=== PATIENT | female | born 1970 | race Caucasian/White ===

== ENCOUNTER 2022-09-11 19:07 | Emergency (ER) | payer OTHER ==
[~2022-09-11] VITALS: Ht 165.1 cm; Wt 81.6 kg
[2022-09-11] MEDS: MECLIZINE HCL 25 MG TABLET PO ONE (19:45)
[2022-09-11 19:57] LABS: HEMATOCRIT 36.7 % (31.2-41.9); MEAN CORPUSCULAR HEMOGLOBIN 26.7 uug (24.7-32.8); MEAN CORPUSCULAR VOLUME 79.5 fL (75.5-95.3); PLATELET COUNT (AUTO) 373 K/uL (179-408)
[2022-09-11 20:11] LABS: ALANINE AMINOTRANSFERASE 23 U/L (14-59); ALKALINE PHOSPHATASE 80 U/L (50-136); ASPARTATE AMINOTRANSFERASE 13 U/L (15-37); BILIRUBIN,DIRECT 0.1 mg/dL (0.0-0.2); BILIRUBIN,TOTAL 0.2 mg/dL (0.2-1.0); CARBON DIOXIDE 27 mmol/L (21-32); CHLORIDE 100 mmol/L (98-107); CREATININE 0.7 mg/dL (0.6-1.3); GLUCOSE 139 mg/dL (74-106); LIPASE 157 U/L (73-393); POTASSIUM 3.6 mmol/L (3.5-5.1); UREA NITROGEN, BLOOD 10 mg/dL (7-18)
[2022-09-11] MEDS: diphenhydrAMINE 50 MG/1 ML VIAL IV ONE (20:45)
[2022-09-11] MEDS: METOCLOPRAMIDE HCL 10 MG/2 ML VIAL IV ONE (20:45)
[2022-09-11] MEDS ORDERED: ONDANSETRON 4 MG/2 ML VIAL ONE (20:53)
[2022-09-11] MEDS: IV NORMAL SALINE 1000 ML BAG IV ONE (20:58)
[2022-09-11] MEDS: ONDANSETRON 4 MG/2 ML VIAL IV ONE (20:58)
--- NOTE | 2022-09-11 20:58 | NUR ---
Pt out of ER for CT.
--- NOTE | 2022-09-11 22:54 | NUR ---
Patient is able to ambulate to the bathroom with a steady gait. Denies any nausea, or dizziness. Denies pain.
--- NOTE | 2022-09-11 23:00 | NUR ---
IV NS stopped 2300.
[2022-09-11 23:04] LABS: *BILIRUBIN,URIN NEGATIVE (NEGATIVE); *BLOOD, URINE NEGATIVE (NEGATIVE); *CLARITY,URINE CLEAR (CLEAR); *COLOR,URINE YELLOW (YELLOW); *KETONES,URINE NEGATIVE (NEGATIVE); *UROBILINOGEN,URINE 0.2 E.U./dl (NORMAL); LEUKOCYTE ESTERASE ,URINE NEGATIVE (NEGATIVE); NITRITE, URINE NEGATIVE (NEGATIVE); PH,URINE 8.5 (5.0-8.0); UGLUCOSE NEGATIVE (NEGATIVE)
[2022-09-11] MEDS ORDERED: MECLIZINE HCL 25 MG TABLET ONE (23:16)
[2022-09-11] MEDS ORDERED: ONDA4TAB11 PO ×2 (23:22→23:39)
[2022-09-11] MEDS ORDERED: MECL-159 PO ×2 (23:22→23:39)
[2022-09-11 23:43] VITALS: BP 144/98
== END 2022-09-11 23:43 | disposition home or self-care (01) ==
LOC: ER 20:04
DX: R11.2 Nausea with vomiting, unspecified (principal); R42 Dizziness and giddiness; R94.31 Abnormal electrocardiogram [ECG] [EKG]; R79.89 Other specified abnormal findings of blood chemistry
CPT/HCPCS: 36415; 70450; 71045; 83605; 83690; 84484; 85025; 85730; 86850; 86900; 86901; 93005; A4663; J2405; J7040; J8597